=== PATIENT | male | born 1965 | race Caucasian/White ===

== ENCOUNTER 2017-03-10 09:51 | Emergency (ER) | payer BC ==
[~2017-03-10] VITALS: Wt 79.0 kg
[~2017-03-10 09:51] MED LIST: AMLO-147 PO; AZIT250T94 PO; CYCL-319 PO; ENAL5TAB PO; HYDR-3498 PO; HYDR12.58 PO; IBUP-1542 PO; METF-382 PO; PROM6.25 PO
[2017-03-10] MEDS ORDERED: LABETALOL HCL 20MG INJ IV ONE (10:30)
--- NOTE | 2017-03-10 11:18 | RADRPT ---
PROCEDURE: US soft tissue globes CLINICAL INDICATION: Retinal detachment TECHNIQUE: Multiple real-time images were acquired of the patient's globes using a high resolution linear transducer. COMPARISON: None FINDINGS: Both globes appear to be symmetric and intact. The retina is not well seen. Ophthalmology follow-up is needed. IMPRESSION: Symmetric bilateral globes. Retinal detachment is not excluded. Ophthalmology follow-up is needed. RPTAT: QQ .Holly Abdullahi MD, MD Date Time Electronically viewed and signed by .Holly Abdullahi MD, MD on 03/10/2017 11:18 .F/
--- NOTE | 2017-03-10 12:00 | ERD ---
ER Documentation Chief Complaint Date/Time DATE: 03/10/17 TIME: 11:55 Chief Complaint RIGHT EYE DISCOMFORT, ONSET LAST NIGHT, HX OF RETINAL DETACHMENT, HIGH BP HPI This 82-year-old male presents for partial visual loss in his right eye. Has history of retinal detachment that was repaired last year. He is having similar symptoms to that. He has no pain. Blood pressure was initially high in triage. Patient states is taking all 3 of his blood pressure medications as he normally does. He has no chest pain shortness of breath or headache. He does not believe he got anything in the eye. ROS All systems reviewed and are negative except as per history of present illness. Medications Home Meds Active Scripts Promethazine w/Codeine* (Phenergan w/Codeine* Syrup) 5 Ml Syrup, 5 ML PO Q4H Y for COUGH, #4 ML Prov:RIC SKINNER PA-C 01/31/16 Azithromycin* (Zithromax*) 250 Mg Tablet, 250 MG PO .ZPACK DIRECTED, #6 TAB TAKE 500 MG (2 TABS) THE FIRST DAY THEN 250 MG (1 TAB) DAYS 2-5 Prov:RIC SKINNER PA-C 01/31/16 Ibuprofen* (Motrin*) 600 Mg Tab, 600 MG PO Q8, #30 Prov:LAURA GBIBONS 06/20/15 Cyclobenzaprine Hcl* (Cyclobenzaprine Hcl*) 10 Mg Tablet, 10 MG PO TID, #15 TAB Prov:LAURA GIBBONS 06/20/15 Hydrocodone Bit-Acetaminophen* ([place]*) 5-325 Mg Tab, 1 TAB PO Q6 Y for PAIN, # 20 TAB Prov:LAURA GIBBONS 06/20/15 Reported Medications Hydrochlorothiazide* (Hydrochlorothiazide*) 12.5 Mg Tablet, 12.5 MG PO DAILY, TAB 11/01/14 Metformin Hcl* (Metformin Hcl*) 500 Mg Tablet, 500 MG PO DAILY, TAB 11/01/14 Enalapril Maleate* (Enalapril Maleate*) 5 Mg Tablet, 5 MG PO DAILY, TAB 11/01/14 Amlodipine Besylate* (Amlodipine Besylate*) 10 Mg Tablet, 10 MG PO DAILY, TAB 11/01/14 Allergies Allergies: Coded Allergies: Penicillins (Verified Allergy, Mild, RASH, 11/01/14) PMhx/Soc History of Surgery: Yes (EYE SURGERY, left eye retina detachment) Anesthesia Reaction: No Hx Neurological Disorder: No Hx Respiratory Disorders: No Hx Cardiac Disorders: Yes (HTN) Hx Psychiatric Problems: No Hx Miscellaneous Medical Probl: Yes (DM) Hx Alcohol Use: No Hx Substance Use: No Hx Tobacco Use: No Smoking Status: Never smoker Physical Exam Vitals Vital Signs Date Time Temp Pulse Resp B/P Pulse Ox O2 Delivery O2 Flow Rate FiO2 03/10/17 11:28 66 18 144/89 98 Room Air 03/10/17 10:35 80 18 162/93 98 Room Air 03/10/17 10:23 172/103 03/10/17 09:56 204/109 201/103 03/10/17 09:55 98.4 95 17 204/109 98 Physical Exam Const: [] No distress Head: Atraumatic Eyes: Normal Conjunctiva. Funduscopic exam with normal vasculature and no obvious abnormalities the visualized portion of the posterior globe. On visual field testing the patient was able to see finger wiggling at the extreme all visual christian. No subjective abnormalities are detected. Patient has no pain excessive blinking or tearing cardio abrasion is very unlikely. ENT: Normal External Ears, Nose and Mouth. Neck: Full range of motion..~ No meningismus. Resp: Clear to auscultation bilaterally Cardio: Regular rate and rhythm, no murmurs Results 24 hrs Current Medications Medications (Trade) Dose Ordered Sig/Cristopher Route PRN Reason Start Time Stop Time Status Last Admin Dose Admin Labetalol HCl (Labetalol) 20 mg ONCE ONCE IV 03/10/17 10:30 03/10/17 10:31 DC Procedures/MDM Painless visual loss with nondiagnostic ultrasound for retinal detachment. This is high in the differential as a medical emergency patient and agrees to go to all other review for evaluation. We did call all IV to make sure that ophthalmology on-call currently. Patient's is able to drive him there. Still has no pain. Initially patient was put on a monitor because of the high blood pressure he was going to receive labetalol however he did not because on recheck of the blood pressure at lowered significantly. Patient had no chest pain or shortness of breath. Departure Diagnosis: Primary Impression: Vision loss, right eye Condition: Serious Patient Instructions: Understanding Vision Problems Additional Instructions: Go directly to [facility] ER for evaluation. CIARA AVITIA DO Mar 10, 2017 12:00
[2017-03-10 12:03] VITALS: BP 137/94; PULSE 65; RESP 18; TEMP 98.6
== END 2017-03-10 12:05 | disposition home or self-care (01) ==
LOC: E/R 09:51
DX: H54.7 Unspecified visual loss (principal); I10 Essential (primary) hypertension; E11.9 Type 2 diabetes mellitus without complications; Z79.84 Long term (current) use of oral hypoglycemic drugs
CPT/HCPCS: 76536; Z7610

== ENCOUNTER 2018-02-02 18:31 | Emergency (ER) | END 2018-02-03 01:26 | disposition home or self-care (01) ==

== ENCOUNTER 2019-01-26 11:06 | Emergency (ER) | payer BC ==
[~2019-01-26] VITALS: Wt 76.0 kg
[~2019-01-26 11:06] MED LIST changes: +AZIT250T PO; -AZIT250T94 PO; +BISA-57 PR; -CYCL-319 PO; +CYCL10TA7 PO; -METF-382 PO; +METF500T24 PO; +ONDA4TAB14 PO; +POLY17PO6 PO
[2019-01-26 11:50] VITALS: BP 142/91; PULSE 106; RESP 18
[2019-01-26] MEDS ORDERED: KETOROLAC 30 MG INJ IM STA (13:35)
[2019-01-26] MEDS ORDERED: AZIT250T PO (14:53)
[2019-01-26] MEDS ORDERED: BENZ-6 PO (14:53)
[2019-01-26] MEDS ORDERED: ACET325T33 PO (14:53)
--- NOTE | 2019-01-26 15:05 | ERD ---
ER Documentation Chief Complaint Chief Complaint R KNEE PAIN X5 DAYS; DENIES INJURY HPI 54-year-old male patient with a past medical history of diabetes, hypertension presents to the ED stating that he has had a cough for the last 3 weeks, as well as right knee pain that started 5 days ago. Scribes the pain is achy and rates it a 5 out of 10. Denies any sick contacts. Denies any trauma to the right knee. Denies any fever, chills, nausea, vomiting, diarrhea, neck stiffness. Denies any chest pain, shortness of breath, loss sensation of the right knee, loss of range of motion. Patient reports that he has had right knee pain previously, received an injection, felt instantly better. ROS All systems reviewed and are negative except as per history of present illness. Medications Home Meds Active Scripts Azithromycin* (Zithromax*) 250 Mg Tablet, 250 MG PO .ZPACK DIRECTED, #6 TAB TAKE 500 MG (2 TABS) THE FIRST DAY THEN 250 MG (1 TAB) DAYS 2-5 Prov:JAROCHO HARO PA-C 01/26/19 Benzonatate* (Tessalon Perle*) 100 Mg Capsule, 100 MG PO Q8H PRN for COUGH, #20 CAP Prov:JAROCHO HARO PA-C 01/26/19 Acetaminophen* (Tylenol*) 325 Mg Tablet, 2 TAB PO Q8 PRN for PAIN AND OR ELEVATED TEMP, #20 TAB Prov:JAROCHO HARO PA-C 01/26/19 Ondansetron (Ondansetron Odt) 4 Mg Tab.rapdis, 4 MG PO Q6H PRN for NAUSEA AND/OR VOMITING, #10 TAB Prov:ALLAN TORRES DO 02/02/18 Bisacodyl* (Dulcolax*) 5 Mg Tablet.dr, 10 MG NV DAILY PRN for CONSTIPATION, #10 TAB Prov:ALLAN TORRES DO 02/02/18 Polyethylene Glycol* (Miralax*) 17 Gm Powd.pack, 17 GM PO DAILY, #7 Prov:ALLAN TORRES DO 02/02/18 Promethazine w/Codeine* (Phenergan w/Codeine* Syrup) 5 Ml Syrup, 5 ML PO Q4H PRN for COUGH, #4 ML Prov:RIC SKINNER PA-C 01/31/16 Azithromycin* (Zithromax*) 250 Mg Tablet, 250 MG PO .AltonPACK DIRECTED, #6 TAB TAKE 500 MG (2 TABS) THE FIRST DAY THEN 250 MG (1 TAB) DAYS 2-5 Prov:RIC SKINNER PA-C 01/31/16 Ibuprofen* (Motrin*) 600 Mg Tab, 600 MG PO Q8, #30 Prov:LAURA GIBBONS 06/20/15 Cyclobenzaprine Hcl* (Cyclobenzaprine Hcl*) 10 Mg Tablet, 10 MG PO TID, #15 TAB Prov:LAURA GIBBONS 06/20/15 Hydrocodone Bit-Acetaminophen* ([place]*) 5-325 Mg Tab, 1 TAB PO Q6 PRN for PAIN, #20 TAB Prov:LAURA GIBBONS 06/20/15 Reported Medications Hydrochlorothiazide* (Hydrochlorothiazide*) 12.5 Mg Tablet, 12.5 MG PO DAILY, TAB 11/01/14 Metformin Hcl* (Metformin Hcl*) 500 Mg Tablet, 500 MG PO DAILY, TAB 11/01/14 Enalapril Maleate* (Enalapril Maleate*) 5 Mg Tablet, 5 MG PO DAILY, TAB 11/01/14 Amlodipine Besylate* (Amlodipine Besylate*) 10 Mg Tablet, 10 MG PO DAILY, TAB 11/01/14 Allergies Allergies: Coded Allergies: Penicillins (Verified Allergy, Mild, RASH, 11/01/14) PMhx/Soc History of Surgery: Yes (bilateral eyes) Anesthesia Reaction: No Hx Neurological Disorder: No Hx Respiratory Disorders: No Hx Cardiac Disorders: Yes (HTN) Hx Psychiatric Problems: No Hx Miscellaneous Medical Probl: Yes (DM) Hx Alcohol Use: No Hx Substance Use: No Hx Tobacco Use: No Smoking Status: Never smoker FmHx Family History: No diabetes, No coronary disease Physical Exam Vitals Vital Signs Date Temp Pulse Resp B/P (MAP) Pulse Ox O2 O2 Flow FiO2 Time Delivery Rate 01/26/19 98.9 106 18 142/91 95 11:50 (108) Physical Exam Const: [id number], well-nourished. In no acute distress. Head: Atraumatic, normocephalic Eyes: Normal Conjunctiva without injection. No purulent discharge. PERRL. EOMI ENT: Normal external ear. Ear canal without erythema. Tympanic membrane pearly almeida without effusion or bulging. Nasal canal clear with normal turbinates. Moist oropharynx without tonsillar exudates. Non-erythematous pharynx. Uvula midline. No drooling. No trismus. Neck: Full range of motion. No meningismus. No cervical lymphadenopathy. Resp: Clear to auscultation bilaterally. No wheezing, rhonchi, rales, or crackles. No accessory muscle use. No retractions. Cardio: Regular rate and rhythm. No murmurs, rubs or gallops. Abd: Soft, non tender, non distended. Normal bowel sounds. No palpable masses. No rebound tenderness. No guarding. Skin: No petechiae or rashes Back: No midline tenderness. No CVA tenderness. Ext: No cyanosis, or edema. Tender to palpation of the right patella. No erythema, edema, purulent discharge noted. Patient was able to flex the right knee, extend without any difficulty. Neur: Awake and alert. Psych: Normal Mood and Affect Results 24 hrs Current Medications Medications Dose Sig/Cristopher Start Time Status Last (Trade) Ordered Route PRN Stop Time Admin Dose Reason Admin Ketorolac 30 mg ONCE STAT 01/26/19 DC 01/26/19 Tromethamine IM 13:35 13:44 (Toradol) 01/26/19 13:37 Procedures/MDM 54-year-old male patient with no significant past medical history presents to ED complaining of right knee pain that started 5 days ago, dry cough that started about 3 weeks ago. Patient has a blood pressure is 142/91. Blood Pressure Assessment: Patient's blood pressure was elevated (>120/80) but appears stable without evidence of hypertension emergency or urgency. The patient was counseled about the risks of hypertension and urged to pursue outpatient monitoring and therapy within a week with their primary care physician. IMPRESSION: Low lung volumes with compressive changes IMPRESSION: No acute findings Patient is placed in an jayce wrap. Splint Assessment: Neurovascularly intact pre and post splint placement with good fit. Differentials include arthritis of the right knee. Patient's extremity symptoms have stabilized while they have been evaluated in the department and are appropriate for outpatient follow up. No evidence of fractures, dislocations, compartment syndrome, neurologic injury, vascular injury, open joint, open fracture, tendon laceration, septic arthritis, osteomyelitis, DVT, foreign body, or other emergent conditions. This patient presents to the ED with symptoms consistent with bronchitis, patient will be covered for a bacterial infection. Patient's physical exam include lungs which were clear to auscultation and a normal pulse oximetry. There is a low suspicion for pneumonia, pneumothorax, mononucleosis, pulmonary embolism, epiglottitis, otitis media, otitis externa, viral/strep pharyngitis, sinusitis, myocarditis, pericarditis, endocarditis, peritonsillar abscess, mastoiditis, retropharyngeal abscess, meningitis, sepsis, acute abdomen or other emergent conditions. Fluids, rest, and symptomatic treatment are recommended for the management of patient's symptoms. Diagnosis: Knee Pain, Cough Discharge medications: Tessalon Perles, Zithromax, Tylenol Patient was instructed to return to the ED for any new or worsening symptoms. They should otherwise follow up with the primary care provider within 2-3 days referral to see an orthopedic physician. The patient's questions were answered at the time of discharge. Patient understood and agreed with discharge management. Disclaimer: Inadvertent spelling and grammatical errors are likely due to EHR/dictation software use and do not reflect on the overall quality of patient care. Also, please note that the electronic time recorded on this note does not necessarily reflect the actual time of the patient encounter. Departure Diagnosis: Primary Impression: Knee pain Chronicity: acute Laterality: right Qualified Codes: M25.561 - Pain in right knee Additional Impression: Cough Condition: Stable Patient Instructions: Bronchitis, Antiobiotic Treatment (Adult), Knee Pain, Uncertain Cause Referrals: [facility] YOU HAVE RECEIVED A MEDICAL SCREENING EXAM AND THE RESULTS INDICATE THAT YOU DO NOT HAVE A CONDITION THAT REQUIRES URGENT TREATMENT IN THE EMERGENCY DEPARTMENT. FURTHER EVALUATION AND TREATMENT OF YOUR CONDITION CAN WAIT UNTIL YOU ARE SEEN IN YOUR DOCTORS OFFICE WITHIN THE NEXT 1-2 DAYS. IT IS YOUR RESPONSIBILITY TO MAKE AN APPOINTMENT FOR FOLOW-UP CARE. IF YOU HAVE A PRIMARY DOCTOR --you should call your primary doctor and schedule an appointment IF YOU DO NOT HAVE A PRIMARY DOCTOR YOU CAN CALL OUR PHYSICIAN REFERRAL HOTLINE AT IF YOU CAN NOT AFFORD TO SEE A PHYSICIAN YOU CAN CHOSE FROM THE FOLLOWING [facility] [address] [facility] [address] [facility] [address] [facility] [address] [facility] [address] [facility]. [facility]. [address] [facility]. [facility] YOU HAVE RECEIVED A MEDICAL SCREENING EXAM AND THE RESULTS INDICATE THAT YOU DO NOT HAVE A CONDITION THAT REQUIRES URGENT TREATMENT IN THE EMERGENCY DEPARTMENT. FURTHER EVALUATION AND TREATMENT OF YOUR CONDITION CAN WAIT UNTIL YOU ARE SEEN IN YOUR DOCTORS OFFICE WITHIN THE NEXT 1-2 DAYS. IT IS YOUR RESPONSIBILITY TO MAKE AN APPOINTMENT FOR FOLOW-UP CARE. IF YOU HAVE A PRIMARY DOCTOR --you should call your primary doctor and schedule and appointment IF YOU DO NOT HAVE A PRIMARY DOCTOR YOU CAN CALL OUR PHYSICIAN REFERRAL HOTLINE AT . IF YOU CAN NOT AFFORD TO SEE A PHYSICIAN YOU CAN CHOSE FROM THE FOLLOWING [facility] INSTITUTIONS[facility] [address] [place] [address] [facility] [address] [place] [address] [facility] [address] [place] [address] [facility] Urgent Care 7 a.m.- 11 p.m. Every Day of the Week NO APPOINTMENT OR AUTHORIZATION NEEDED [facility] Hours: Mon-Fri 9:00 AM - 5:00 PM Additional Instructions: Call your primary care doctor TOMORROW for an appointment during the next 2-3 days.See the doctor sooner or return here if your condition worsens before your appointment time. JAROCHO HARO PA-C Jan 26, 2019 15:05
== END 2019-01-26 15:15 | disposition home or self-care (01) ==
LOC: FTE 11:06
DX: M25.561 Pain in right knee (principal); R05 Cough; I10 Essential (primary) hypertension; E11.9 Type 2 diabetes mellitus without complications; Z79.84 Long term (current) use of oral hypoglycemic drugs
CPT/HCPCS: 71045; 73562; 96372; J1885; Z7502